=== PATIENT | male | born 1960 | race Caucasian/White ===

== ENCOUNTER 2018-06-09 15:43 | Emergency (ER) | payer OTHER, SELFPAY ==
[2018-06-09 15:47] VITALS: BP 143/77; PULSE 70; RESP 16; TEMP 36.4; O2SAT 100
--- NOTE | 2018-06-09 15:54 | ED.GENADUL_ITS ---
Discharge Plan Disposition Patient Disposition: HOME Condition: Fair Discharge Details Chief Complaint: HeadInjury Clinical Impression: Concussion Primary Care Provider: Yesenia Angel ED Provider: Artur Armas Home Meds and New Rx's Prescriptions: No Action No Known Home Meds RF: 0 Discharge Instructions Instructions: Concussion (ED) Additional Instructions: Encourage hydration. Tylenol and/or ibuprofen as needed for discomfort. Please allow for brain rest. Avoid screens and physical exertion. Please follow-up with primary care in 1 week if symptoms persist. If you develop increased pain, visual change, vomiting or other new/worsening symptoms please seek care urgently once again. Referrals: Yesenia Angel MD [Primary Care Provider] - Discharge Data Discharge Date/Time-TO BE ENTERED AT DEPARTURE: 06/09/18 17:32 Medical Decision Making <LISSY Reed - Last Filed: 06/10/18 15:47> Patient is a 58-year-old male, accompanied by son, with chief complaint of head injury. He reports presently 30 minutes prior to arrival he was working on a ladder, approximately 3 feet up, when he fell backwards catching his foot on the wrong striking the posterior right side of his head against the wall. Reports that this does cause damage to the sheet rock that he hit. No loss of consciousness. Patient feels that he was acting normally but son reports altered mentation. He reports forgetfulness and lapses in memory. Patient endorses nausea initially but reports that this is subsided. No visual changes. Reports the pain is fairly minimal and rates at a 1 out of 10 and localizes it to the area of swelling noted on physical exam. Neuro exam is intact. Patient I discussed risk/benefits of imaging. At this point, I feel that he is low risk for bleed. He is not anticoagulated. However, given mechanism of injury and altered mentation, patient would prefer to move forward with imaging was tried in agreement with. Plan to move forward with CT of the head. Patient is icing the swollen area. He is declining any further analgesics at this time. Reviewed the CT scan. I do not visualize any acute ab normalities. Discussed my wet read with the. Advised that we would wait for radiologist interpretation. At this point, I am primarily concerned for concussion. At the end of my shift, care was transitioned to Shar Armas NP with radioloigst interpretation of CT pending. I did discuss care for concussion with the patient in depth. Encouraged brain rest and hydration. He was given strict return precautions. Advised Tylenol and/or ibuprofen as needed for discomfort. <Artur Armas NP - Last Filed: 06/09/18 17:23> Patient signed out to me by Soniya YUAN. Patient is pending discharge after CT results for suspected concussion with rule out of any intracranial abnormalities. Review of CT shows no acute abnormalities. Spoke with patient in regards to diagnosis and plan of care along with brain rest. Patient stated no further needs questions or concerns and was in stable condition with no new or worrisome changes. Patient discharged in stable condition and ambulatory reviewed previous documentation and agree with assessment and state no obvious change in condition. HPI <LISSY Reed - Last Filed: 06/10/18 15:47> General Mode of arrival: ambulatory . Date/Time Provider Initiated Documentation: 06/09/18 15:47 . Limitations to Documentation: no limitations . Information obtained by: patient . History of Present Illness 58 year old M presents to the emergency department with the chief complaint of head injury, described as mild, with intensity rated at 1. Quality is described as aching, and is localized to the head. Patient reports no radiation. Patient started experiencing this minute(s) (30) and it has been constant. No relieving factors improve symptom(s), No exacerbating factors reported . Patient notes confusion (son reports memory changes), headaches ( reports localized pain where he struck his head at the time of the fall) and nausea/vomiting (endorses nausea which has since resolved); denies chest pain, cough, fever/chills, malaise, rash, seizure, shortness of breath, syncope and weakness. Patient did receive the following treatments prior to arrival, none Related Data Home Medications Medication Instructions Recorded Confirmed Unknown [No Known Home Meds] 06/09/18 06/09/18 Allergies Allergy/AdvReac Type Severity Reaction Status Date / Time No Known Allergies Allergy Unverified 06/09/18 15:55 General Stated Complaint: HeadInjury [facility]: 3 Review of Systems <LISSY Reed - Last Filed: 06/10/18 15:47> Constitutional Reports as per HPI, Denies frequent falls and Reports headache(s) Eyes Denies change in vision and Denies loss of vision ENT Denies dizziness, Reports headache(s) and Denies neck pain Cardiovascular Denies chest pain, Denies syncope, Denies dyspnea and Denies dyspnea on exertion Respiratory Denies cough, Denies dyspnea and Denies dyspnea on exertion Gastrointestinal Reports as per HPI, Denies abdominal pain, Reports nausea and Denies vomiting Genitourinary Denies urinary incontinence Musculoskeletal Reports as per HPI, Denies abnormal gait, Denies back pain, Denies myalgias, Denies arthralgias, Denies muscle weakness, Denies neck pain, Denies numbness and Denies radiating pain into limb Integumentary/Breasts Denies new lesions, Denies erythema and Denies rash Neurologic Reports as per HPI, Denies abnormal gait, Denies behavioral changes, Reports confusion, Denies dizziness, Denies syncope, Denies frequent falls, Reports headache(s), Denies lack of coordination, Denies focal weakness, Denies loss of vision and Denies numbness Psychiatric Denies behavioral changes and Reports confusion Exam <LISSY Reed - Last Filed: 06/10/18 15:47> Const General: cooperative, healthy appearing, comfortable, no acute distress, well developed and well groomed Nutritional Appearance: average body habitus and well nourished Orientation: alert, awake and oriented x3 HENMT Head: abnormal to inspection (Patient is a 3 cm area of palpable swelling on the right occipital aspect of the cranium), no palpable skull fracture, no abrasions, no Cochran's sign, contusion, no hematomas, no lacerations, no occipital foramen tenderness, no palpable skull fracture, no raccoon eyes, scalp tenderness and No periorbital ecchymosis Ears: hearing grossly normal bilaterally, external ears normal and TM's normal bilaterally General nose exam: external nose normal and nares normal Face and sinus: normal facial exam Mouth: oral mucosae normal, lip normal, oropharynx normal and moist mucous membranes Throat: posterior oropharynx normal, tonsils normal and uvula midline Eyes General: appearance normal, both eyes and all related structures Alignment and Position: alignment normal Periorbital: periorbital findings normal Eyelids: eyelids normal Conjunctivae: conjunctivae normal Sclera: sclerae normal Pupils: PERRL EOM: EOM intact bilaterally Neck Neck: normal visual inspection, full ROM, no lymphadenopathy, supple and nontender Resp Effort & Inspection: normal respiratory effort, able to speak in complete sentences and no respiratory distress Auscultation: clear to auscultation bilaterally, no rales, no rhonchi and no wheezes Cardio Rate: regular rate Rhythm: regular rhythm Heart Sounds: S1 normal and S2 normal Back/Spine/Pelvis Cervical Spine: normal cervical lordosis and cervical ROM normal Thoracic/Lumbar Spine: thoracic and lumbar spine normal to inspection Skin General skin exam: no rashes or lesions noted Neuro General: alert, awake and oriented x3 Cranial Nerves: CN's II-XI intact bilaterally Cognition: normal cognition Speech: speech normal Gait: normal gait Motor: muscle tone normal throughout and strength 5/5 throughout Sensory Exam: no sensory deficits noted DTR's: Rt Biceps: 2+, Lt Biceps: 2+, Rt Brachioradialis: 2+, Lt Brachioradialis : 2+, Rt Patellar: 2+, Lt Patellar: 2+, Rt Ankle: 2+ and Lt Ankle: 2+ Coordination: swulqc-ak-vqej test normal, kmpi-ts-lfyw test normal, tandem gait normal and rapid alternating movement UE normal Psych Appearance: grossly normal and well kempt Mental Status: mental status grossly normal Speech and Movement: speech and movement normal Course <LISSY Reed - Last Filed: 06/10/18 15:47> Vital Signs Temperature 36.4 C L 06/09/18 15:47 Pulse 70 06/09/18 15:47 Respiratory Rate 16 06/09/18 15:47 Blood Pressure 143/77 H 06/09/18 15:47 Pulse Oximetry 100 06/09/18 15:47 Temperature 36.4 C L 06/09/18 15:47 Temperature Source Skin 06/09/18 15:47 Pulse 70 06/09/18 15:47 Respiratory Rate 16 06/09/18 15:47 Blood Pressure 143/77 H 06/09/18 15:47 Blood Pressure Position Sitting 06/09/18 15:47 Pulse Oximetry 100 06/09/18 15:47 Oxygen Delivery Method Room Air 06/09/18 15:47 Oxygen Flow Rate 0 06/09/18 15:47 Pain Level 1 06/09/18 15:47 Sign Out <LISSY Reed - Last Filed: 10/31/18 15:47> Sign Out Data: Sign Out Comment: CT results pending after head trauma. Care transitioned to Shar ANN Armas Last updated by Sumi Gale PA at 06/09/18 16:59
--- NOTE | 2018-06-09 16:08 | DI.CT_ITS ---
SYMPTOMS/DIAGNOSIS: TRAUMA S/P FALL CRANIAL CT: A noncontrast enhanced examination was performed. There is no evidence of an intra/extra-axial hemorrhage. The portillo-white matter differentiation is maintained throughout. The ventricles are unremarkable. There is no evidence of an acute fracture. The sinuses are normal. There is no mastoid effusion. The soft tissues are intact. SUMMARY: No acute intracranial abnormality is identified.
--- NOTE | 2018-06-09 17:09 | DI.VRAD_ITS ---
EXAM: CT Head Without Intravenous Contrast EXAM DATE/TIME: 06/09/2018 4:09 PM CLINICAL HISTORY: 58 years old, male; Signs and symptoms; Other: Trauma; Patient HX: Fall heat head posterior TECHNIQUE: Axial computed tomography images of the head/brain without intravenous contrast. All CT scans at this facility use at least one of these dose optimization techniques: automated exposure control; mA and/or kV adjustment per patient size (includes targeted exams where dose is matched to clinical indication); or iterative reconstruction. Coronal and sagittal reformatted images were created and reviewed. COMPARISON: No relevant prior studies available. FINDINGS: Brain: Unremarkable. No hemorrhage. No significant white matter disease. No edema. Ventricles: Unremarkable. No ventriculomegaly. Bones/joints: Unremarkable. No acute fracture. Sinuses: Normal as visualized. No acute sinusitis. Mastoid air cells: Normal as visualized. No mastoid effusion. Soft tissues: Unremarkable. IMPRESSION: No acute intracranial abnormality. Dictated and Authenticated by: Harris Monteiro MD. Ordering:JUSTIN ARROYO MD
[2018-06-09 17:30] VITALS: BP 126/81; PULSE 66; RESP 16; TEMP 36.4; O2SAT 99
--- NOTE | 2018-06-09 23:16 | NUR.NOTE ---
Nursing Note: Patient called after being discharged looking for his dog tags that were his fathers that are now missing. Patient doesn't remember where they were or if he had them at the time he was here. This loan underwriter did patients admission and noted no dog tags around his neck when he was taking off his shirt.
== END 2018-06-09 17:32 | disposition home or self-care (01) ==
PROVIDERS: Emergency Provider Nurse Practitioner Family; PCP Internal Medicine
DX: S06.0X0A Concussion without loss of consciousness, initial encounter (principal); W11.XXXA Fall on and from ladder, initial encounter
CPT/HCPCS: 99284; 70450

== ENCOUNTER 2019-05-13 02:41 | Outpatient (CLI) | payer OTHER, SELFPAY ==
--- NOTE | 2019-05-13 07:35 | DI.US_ITS ---
EXAM: US AAA SCREENING CLINICAL HISTORY: vascular laxity,SCREENING FOR AAA,Z13.6. TECHNIQUE: Ultrasound performed using standard protocol. COMPARISON: No exams were available for comparison FINDINGS: Limited scanning of the abdomen was performed for evaluation possible abdominal aortic aneurysm. Abd ominal aorta is of normal diameter throughout as are the right and left common iliac arteries. IMPRESSION: No evidence of aneurysm.
== END 2019-05-13 03:01 ==
PROVIDERS: PCP Internal Medicine; Visit Provider Internal Medicine
DX: Z13.6 Encounter for screening for cardiovascular disorders (principal)
CPT/HCPCS: 76706

== ENCOUNTER 2023-02-14 08:04 | Day surgery (SDC) | payer OTHER, SELFPAY ==
[2023-02-14 08:25] VITALS: BP 121/85; PULSE 70; RESP 16; TEMP 36.8; O2SAT 98
[2023-02-14] MEDS: Tropicam./Phenyleph. (1/2.5%) 5 ML BTL OD ×3 (08:38→08:45)
--- NOTE | 2023-02-14 09:37 | W.ANESPRE ---
General Info Date of Service Date Performed: 02/14/23 Height: 6 ft 2 in Weight: 91.7 kg Body Mass Index (BMI): 25.9 Surgical Procedure: Operation Date: 02/14/23 09:55 Proposed Procedure Side Surgeon p Cataract Extraction with IOL Implant Right Miquel Hernandez MD Meds Allergies and Home Medications Allergies Allergy/AdvReac Type Severity Reaction Status Date / Time No Known Allergies Allergy Verified 02/14/23 08:28 Home Medication Medication Instructions Recorded Unknown [No Known Home Meds] 05/23/22 Current Visit Medications: Current Medications Generic Name Dose Route Start Last Admin Trade Name Freq PRN Reason Stop Dose Admin Acetaminophen 1,000 mg 02/14/23 06:00 Acetaminophen 500 Mg Tab PO 03/16/23 05:59 Q4H PRN PRN Balanced Salt Solution 500 ml 02/14/23 06:00 Balanced Salt Soln.-Plus 500 Ml Bag OP 03/16/23 05:59 DIRECTED SILVA Miscellaneous Medication 0 ml 02/14/23 06:00 Prednisolone 1%, Moxifloxacin 0.5%, Nepafenac 0.1% 5ml Btl OD 03/16/23 05:59 DIRECTED SILVA Miscellaneous Medication 0 ml 02/14/23 06:00 02/14/23 08:45 Tropicam./Phenyleph. (1/2.5%) 5 Ml Btl OD 03/16/23 05:59 1 drp DIRECTED SILVA Administration Tetracaine HCl 0 ml 02/14/23 06:00 Tetracaine 0.5% 4 Ml Btl OD 03/16/23 05:59 DIRECTED SILVA PFSH Active Problems Active Problems: Problem Status Onset Code Posterior subcapsular age-related cataract, right eye H25.041 Nuclear age-related cataract, right eye H25.11 Encounter for annual physical exam Z00.00 Left carotid stenosis I65.22 Venous insufficiency of lower extremity I87.2 Varicose vein of leg I83.90 Inguinal hernia K40.90 Polyp of colon 12/07/12 K63.5 Tobacco Smoking/Tobacco Use Status: Never Passive smoking exposure: Yes Second hand exposure: Yes Alcohol Alcohol Intake: current Alcohol intake frequency: a few times a month Alcohol type: wine Substance Use Substance use: Never Substance use type: does not use Vital Signs and Lab Results Vital Signs Most Recent Vital Signs in EMR: Most Recent Vital Signs Temp Pulse Resp BP Pulse Ox 36.8 C 70 16 121/85 98 02/14/23 08:25 02/14/23 08:25 02/14/23 08:25 02/14/23 08:25 02/14/23 08:25 Lab Results Blood Type / Crossmatch: No Data to Display Complete Blood Count: No Data to Display Complete Metabolic Panel: No Data to Display Liver Function Panel: No Data to Display Coagulation Panel: No Data to Display Cardiac Panel: No Data to Display Arterial Blood Gas: No Data to Display Venous Blood Gas: No Data to Display Pancreas Panel: No Data to Display Thyroid Panel: No Data to Display Infectious Disease: No Data to Display Blood Cultures: No Data to Display Toxicology Panel: No Data to Display Imaging and Studies Imaging and Studies Study information below may be from another EMR and interpreted by another provider. Please see original notes in EMR for more complete details. Carotid Artery Summary:: 04/2022:Patient Name: Juan Woodward #: [id number]: [id number] Ordering Provider: Milton Jackson M.D. : REG CLI Primary Care Provider: Liana Zepeda NPDate of Exam: 05/07/22Sex: M Admission Date: 05/07/22 : 1960 Age: 61 Exam(s) US CAROTID EXAM: US CAROTID CLINICAL HISTORY: carotid calcification seen on dental xrays,lt carotid stenosis, i65.22. TECHNIQUE: Ultrasound carotids performed using grayscale, color-flow, and spectral Doppler imaging. COMPARISON: No exams were available for comparison FINDINGS: RIGHT CAROTID ARTERY: Plaque: No significant plaque is identified. Velocity elevation: None. LEFT CAROTID ARTERY: Plaque: Noncalcified plaque is identified in the carotid bulb. Velocity elevation: None. VERTEBRAL ARTERIES: Antegrade flow. Measurements: R Bulb: 91.9cm/s PS / 25.8cm/s ED R CCA: 88cm/s PS / 28.4cm/s ED R ECA: 100cm/s PS / 32.5cm/s ED R ICA Prox: 105.3cm/s PS / 21.7cm/s ED R ICA Mid: 89.9cm/s PS / 30.7cm/s ED R ICA Distal: 57.7cm/s PS /24.3cm/s ED R Vert: 37.5cm/s PS / 14cm/s ED R SVR: 1.2 R DVR: 0.8 L Bulb: 84.7cm/s PS / 29cm/s ED L CCA: 79.9cm/s PS / 31.4cm/s ED L ECA: 106.5cm/s PS / 25.9cm/s ED L ICA Prox: 79.9cm/s PS / 29cm/s ED L ICA Mid: 92cm/s PS / 37.4cm/s ED L ICA Distal: 95.5cm/s PS / 39.8cm/s ED L Vert: 50.2cm/s PS / 19.6cm/s ED L SVR: 1.2 L DVR: 1.3 IMPRESSION: No evidence for hemodynamically significant carotid stenosis. Criteria for Carotid Stenosis: Normal: ICA PSV <125 cm/s no plaque or intimal thickening is visible. <50% stenosis: ICA PSV <125 cm/s and plaque or intimal thickening is visible. 50-69% stenosis: ICA PSV is 125-250 cm/s and plaque is visible. >70% stenosis to near occlusion: ICA PSV >250 cm/s with visible plaque and luminal narrowing. Anesthesia Assessment and Plan Anesthesia History Personal History: No History of Anesthesia Complications Family History: No Family History of Anesthesia Complications Exercise Tolerance Exercise Tolerance: Metabolic Equivalents>4 Pertinent Negatives Pertinent Negatives: No Symptoms of GERD, No Major Cardiovascular Symptoms or Complaints and No Major Pulmonary Symptoms or Complaints Cardiac & Pulmonary Exam Cardiac Exam: Normal S1/S2 Heart Sounds Pulmonary Exam: Clear Bilateral Breath Sounds Implantable Cardiac Device Does patient have a Pacemaker or an ICD?: No Airway Exam Known Difficult Airway: No Mallampati Class: 1 Mouth Opening: Normal (> 3cm) Thyromental Distance: Greater than 3 cm Neck Range of Motion: Full ROM Neck Circumference: Normal Teeth Condition: Normal Dentition ASA Classification ASA Score: ASA 2 Emergency Case?: No NPO Status NPO Status: NPO Clears >2 hours, Solids >8 hours Anesthesia Plan Resuscitation Status: Full Code Anesthesia Technique: MAC Anesthesia Airway Planned: Natural Airway Monitors Used: Standard Monitors
[2023-02-14 09:38] VITALS: BMI 25.9
[2023-02-14] MEDS: Balanced Salt Soln.-PLUS 500 ML BAG OP (10:10)
[2023-02-14] MEDS: Tetracaine 0.5% 4 ML BTL OD (10:11)
[2023-02-14] MEDS: Lidocaine 1% Pres-Free 5 ML VIAL (10:11)
[2023-02-14] MEDS: Duovisc Viscoelastic System EACH 1 EACH (10:12)
[2023-02-14] MEDS: Phenylephrine/Lidocaine (15/10) MG/ML 1 ML VIAL (10:13)
[2023-02-14] MEDS: Povidone-Iodine Ophth 30 ML BTL (10:13)
[2023-02-14] MEDS: Trypan Blue 0.06% 0.5 ML SYR (10:13)
[2023-02-14 10:36] VITALS: BP 121/86; PULSE 68; RESP 16; TEMP 36.7; O2SAT 98
--- NOTE | 2023-02-14 10:37 | W.PM.DSUDISC ---
Date of service: 02/14/23 Time of Service: 10:37 Discharge Plan Disposition Patient Disposition: Home Discharge Details Attending Provider: Miquel Hernandez Primary Care Provider: Jeannie Armendariz Home Meds and New Rx's Prescriptions: No Action No Known Home Meds Discharge Instructions Stand Alone Forms: Post-op Topical Cataract, Ashli Dejesus (DSU) Discharge Orders Discharge Orders: Discharge Order (Routine); Ordered 02/14/23 Ordered By: Miquel Hernandez DS: Diagnosis Discharge Diagnosis (1) Posterior subcapsular age-related cataract, right eye: Status: Resolved (2) Nuclear age-related cataract, right eye: Status: Resolved
--- NOTE | 2023-02-14 10:37 | W.PM.OP ---
Date of service: 02/14/23 Time of Service: 10:37 Operative Note Operative Note DATE OF PROCEDURE: 02/14/23 PRE-OP DIAGNOSIS: Dense nuclear/posterior subcapsular cataract, right eye POST-OP DIAGNOSIS: same PROCEDURE: Cataract extraction using phacoemulsification with intraocular lens implant, right eye SURGEON: Miquel Hernandez ANESTHESIA TYPE: Local By Surgeon and MAC Refer to Anesthesia Record ESTIMATED BLOOD LOSS: 0 PATHOLOGY: none sent COMPLICATIONS: None Patient was transported to: same day Patient's condition: stable Implants: Hayden [employer] Hayden Tecnis Eyhance [id number] Indications: Progressive visual loss due to cataract, right eye Procedure Description: CATARACT SURGERY OPERATIVE REPORT PREOPERATIVE DIAGNOSIS: 1. Dense nuclear/posterior subcapsular cataract, right eye POSTOPERATIVE DIAGNOSIS: Same OPERATION: 1. Cataract extraction using phacoemulsification with posterior chamber intraocular lens implant, right eye. IOL: IOL [employer]/Model: Hayden & Hayden Tecnis Eyhance DIB00 IOL Power: + 22.5 diopters IOL Serial Number: [id number] Optic Diameter: 6.0mm Haptic/Overall Diameter: 13.0mm PHACO INFO: Theo [employer] Technologyurion Vision System with OZil and Active Fluidics Cumulative Dispersed Energy (CDE): 26.04 seconds SURGEON: Miquel Hernandez MD, KASEY ANESTHESIA: Monitored Anesthesia Care (MAC), with local sub-tenon's anesthetic infiltration COMPLICATIONS: None SPECIMENS: None INDICATIONS FOR PROCEDURE: The patient is a 62-year-old male with history of diminished visual acuity in his right eye secondary to the development of dense nuclear/posterior subcapsular cataract. Visual acuity measures 2200 in the presence of dense cataract with a poor red reflex. The option of cataract surgery was offered to the patient and he wished to proceed. See office notes for detailed information. PROCEDURE: The correct surgical eye was identified and marked as the right eye and the pupil was dilated in the preoperative area using mydriatics and cycloplegics. The dilated pupil size was 7.0 mm. Oral sedation was administered in the form of an Imprimis MKO Melt (midazolam 3mg/ketamine 25mg/ondansetron 2mg). The patient was brought to the operating room where cardiopulmonary monitoring was instituted and surgical time-out was performed, confirming the correct operative eye and IOL power. Topical anesthesia was administered and ophthalmic povidone-iodine 5% was instilled into the conjunctival fornices. The priscilla-ocular area was prepped with Betadine 10% solution and draped in the usual sterile fashion for intraocular surgery, including an aperture drape. A Tegaderm transparent film dressing was cut in half and used to cover the lashes and lid margins. Care was taken to sequester the lashes and lid margins under the Tegaderm dressing. A lid speculum was placed between the lids of the operative eye and the Theo LuxOR Revalia operating microscope was maneuvered into position. Ivan scissors were then used to make a conjunctival buttonhole approximately 6mm posterior to the limbus in the inferonasal quadrant. Blunt dissection was carried out to expose bare sclera, and a blunt-tipped sub-tenon?s anesthesia cannula was introduced and passed posteriorly along the globe where non-preserved plain lidocaine was injected into posterior sub-Tenon?s space. A sideport knife was used to make a paracentesis port. VisionBlue was injected into the anterior chamber and allowed to sit for 30 seconds. Intraocular phenylephrine/lidocaine was injected into the anterior chamber. The anterior chamber was filled with viscoelastic. A keratome knife was used to construct a 2-plane clear corneal tunnel extending 2.0mm into clear cornea. A flap was raised on the anterior capsule and capsulorhexis forceps were used to complete a continuous curvilinear capsulorhexis of 5.5 mm. Balanced salt solution was then used to perform cortical cleaving hydrodissection and nuclear hydrodelineation until the lens could be freely rotated within the capsular bag. The lens nucleus was then disassembled and removed within the capsular bag and iris plane using phacoemulsification. Residual cortical material was removed using the I/A handpiece. The posterior capsule was carefully polished to remove as much residual lens epithelial cells as safely possible. The capsular bag was then inflated and the anterior chamber deepened with cohesive viscoelastic. The lens implant described above was inserted into the capsular bag using the Hayden and Yvonen Simplicity pre-loaded injector. A Kuglen hook was used to dial the IOL into position. Residual viscoelastic was then removed first from posterior to the IOL, then from the anterior chamber using the I/A handpiece. The lens implant was noted to center nicely within the capsular bag. The incisions were stromally hydrated, and the anterior chamber was reformed using BSS. Then 0.5cc of moxifloxacin 1.0mg/ml were injected into the capsular bag and anterior chamber. The incisions were checked with a Weck spear and found to be secure. Several drops of ophthalmic povidone-iodine 5% were then applied to the eye followed by two drops of Imprimis combination prednisolone/moxifloxacin/nepafenac solution. The drapes were removed and a clear plastic protective eye shield was placed over the eye. The patient was then returned to [facility] in stable condition.
[2023-02-14 10:42] VITALS: BP 121/86; PULSE 68; RESP 16; TEMP 36.7; O2SAT 98
--- NOTE | 2023-02-14 10:49 | W.ANESPOSTOP ---
Postoperative Evaluation Date, Time and Location Date Performed: 02/14/23 Time Performed: 10:50 Patient Location: Day Surgery Unit Vital Signs Most Recent Imported Vital Signs: Most Recent Vital Signs Temp Pulse Resp BP Pulse Ox 36.7 C 68 16 121/86 98 02/14/23 10:42 02/14/23 10:42 02/14/23 10:42 02/14/23 10:42 02/14/23 10:42 Pain Score Most Recent Pain Score: Most Recent Pain Score Pain Level 0 02/14/23 10:42 Assessment Mental Status: Awake (Alert & Oriented to Patient Baseline) Airway and Respiratory Function: Patent airway with normal (patient baseline) respiratory exam Cardiovascular Function: Hemodynamically Stable Hydration Status: Adequately Hydrated Nausea & Vomiting: No Nausea or Vomiting Pain: Pt. Denies Any Pain Peripheral Nerve Block: Patient did not receive a nerve block
[2023-02-14 11:07] VITALS: BP 120/84; PULSE 66; RESP 16; TEMP 36.8; O2SAT 100
== END 2023-02-14 08:05 | disposition home or self-care (01) ==
PROVIDERS: PCP Nurse Practitioner Family; Visit Provider Ophthalmology
PROC: (CPT 66984; principal; 2023-02-14 09:45)
DX: H25.041 Posterior subcapsular polar age-related cataract, right eye (principal); H25.11 Age-related nuclear cataract, right eye
CPT/HCPCS: 66984; V2632

== ENCOUNTER 2023-02-28 07:09 | Day surgery (SDC) | payer OTHER, SELFPAY ==
[2023-02-28 07:20] VITALS: BP 116/81; PULSE 61; RESP 16; TEMP 36.6; O2SAT 97
[2023-02-28] MEDS: Tropicam./Phenyleph. (1/2.5%) 5 ML BTL OS ×3 (07:32→07:47)
--- NOTE | 2023-02-28 07:41 | W.ANESPRE ---
General Info Date of Service Date Performed: 02/28/23 Height: 6 ft 2 in Weight: 91.8 kg Body Mass Index (BMI): 25.9 Surgical Procedure: Operation Date: 02/28/23 08:25 Proposed Procedure Side Surgeon p Cataract Extraction with IOL Implant Left Miquel Hernandez MD Meds Allergies and Home Medications Allergies Allergy/AdvReac Type Severity Reaction Status Date / Time No Known Allergies Allergy Verified 02/28/23 07:28 Home Medication Medication Instructions Recorded Unknown [No Known Home Meds] 05/23/22 Current Visit Medications: Current Medications Generic Name Dose Route Start Last Admin Trade Name Freq PRN Reason Stop Dose Admin Acetaminophen 1,000 mg 02/28/23 06:00 Acetaminophen 500 Mg Tab PO 03/30/23 05:59 Q4H PRN PRN Balanced Salt Solution 500 ml 02/28/23 06:00 Balanced Salt Soln.-Plus 500 Ml Bag OP 03/30/23 05:59 DIRECTED SILVA Miscellaneous Medication 0 ml 02/28/23 06:00 Prednisolone 1%, Moxifloxacin 0.5%, Nepafenac 0.1% 5ml Btl OS 03/30/23 05:59 DIRECTED SILVA Miscellaneous Medication 0 ml 02/28/23 06:00 02/28/23 07:32 Tropicam./Phenyleph. (1/2.5%) 5 Ml Btl OS 03/30/23 05:59 1 drp DIRECTED SILVA Administration Tetracaine HCl 0 ml 02/28/23 06:00 Tetracaine 0.5% 4 Ml Btl OS 03/30/23 05:59 DIRECTED SILVA PFSH Active Problems Active Problems: Problem Status Onset Code Polyp of colon 12/07/12 K63.5 Inguinal hernia K40.90 Varicose vein of leg I83.90 Venous insufficiency of lower extremity I87.2 Left carotid stenosis I65.22 Encounter for annual physical exam Z00.00 Nuclear age-related cataract, right eye H25.11 Posterior subcapsular age-related cataract, right eye H25.041 Nuclear age-related cataract, left eye H25.12 Posterior subcapsular age-related cataract of left eye H25.042 Surgical History Surgical History (Updated 02/28/23 @ 07:24 by Stacy Russell) Hx of cataract removal with insertion of prosthetic lens Tobacco Smoking/Tobacco Use Status: Never Passive smoking exposure: Yes Second hand exposure: Yes Alcohol Alcohol Intake: current Alcohol intake frequency: a few times a month Alcohol type: wine Substance Use Substance use: Never Substance use type: does not use Vital Signs and Lab Results Vital Signs Most Recent Vital Signs in EMR: Most Recent Vital Signs Temp Pulse Resp BP Pulse Ox 36.6 C 61 16 116/81 97 02/28/23 07:20 02/28/23 07:20 02/28/23 07:20 02/28/23 07:20 02/28/23 07:20 Lab Results Blood Type / Crossmatch: No Data to Display Complete Blood Count: No Data to Display Complete Metabolic Panel: No Data to Display Liver Function Panel: No Data to Display Coagulation Panel: No Data to Display Cardiac Panel: No Data to Display Arterial Blood Gas: No Data to Display Venous Blood Gas: No Data to Display Pancreas Panel: No Data to Display Thyroid Panel: No Data to Display Infectious Disease: No Data to Display Blood Cultures: No Data to Display Toxicology Panel: No Data to Display Imaging and Studies Imaging and Studies Study information below may be from another EMR and interpreted by another provider. Please see original notes in EMR for more complete details. Carotid Artery Summary:: 04/2022:Patient Name: Juan Woodward #: [id number]: DI Ordering Provider: Milton Jackson M.D. : REG CLI Primary Care Provider: Liana Zepeda NPDate of Exam: 05/07/22Sex: M Admission Date: 05/07/22 : 1960 Age: 61 Exam(s) US CAROTID EXAM: US CAROTID CLINICAL HISTORY: carotid calcification seen on dental xrays,lt carotid stenosis, i65.22. TECHNIQUE: Ultrasound carotids performed using grayscale, color-flow, and spectral Doppler imaging. COMPARISON: No exams were available for comparison FINDINGS: RIGHT CAROTID ARTERY: Plaque: No significant plaque is identified. Velocity elevation: None. LEFT CAROTID ARTERY: Plaque: Noncalcified plaque is identified in the carotid bulb. Velocity elevation: None. VERTEBRAL ARTERIES: Antegrade flow. Measurements: R Bulb: 91.9cm/s PS / 25.8cm/s ED R CCA: 88cm/s PS / 28.4cm/s ED R ECA: 100cm/s PS / 32.5cm/s ED R ICA Prox: 105.3cm/s PS / 21.7cm/s ED R ICA Mid: 89.9cm/s PS / 30.7cm/s ED R ICA Distal: 57.7cm/s PS /24.3cm/s ED R Vert: 37.5cm/s PS / 14cm/s ED R SVR: 1.2 R DVR: 0.8 L Bulb: 84.7cm/s PS / 29cm/s ED L CCA: 79.9cm/s PS / 31.4cm/s ED L ECA: 106.5cm/s PS / 25.9cm/s ED L ICA Prox: 79.9cm/s PS / 29cm/s ED L ICA Mid: 92cm/s PS / 37.4cm/s ED L ICA Distal: 95.5cm/s PS / 39.8cm/s ED L Vert: 50.2cm/s PS / 19.6cm/s ED L SVR: 1.2 L DVR: 1.3 IMPRESSION: No evidence for hemodynamically significant carotid stenosis. Criteria for Carotid Stenosis: Normal: ICA PSV <125 cm/s no plaque or intimal thickening is visible. <50% stenosis: ICA PSV <125 cm/s and plaque or intimal thickening is visible. 50-69% stenosis: ICA PSV is 125-250 cm/s and plaque is visible. >70% stenosis to near occlusion: ICA PSV >250 cm/s with visible plaque and luminal narrowing. Anesthesia Assessment and Plan Anesthesia History Personal History: No History of Anesthesia Complications Family History: No Family History of Anesthesia Complications Exercise Tolerance Exercise Tolerance: Metabolic Equivalents>4 Pertinent Negatives Pertinent Negatives: No Symptoms of GERD Cardiac & Pulmonary Exam Cardiac Exam: Normal S1/S2 Heart Sounds Pulmonary Exam: Clear Bilateral Breath Sounds Implantable Cardiac Device Does patient have a Pacemaker or an ICD?: No Airway Exam Known Difficult Airway: No Mallampati Class: 1 Mouth Opening: Normal (> 3cm) Thyromental Distance: Greater than 3 cm Neck Range of Motion: Full ROM Neck Circumference: Normal Teeth Condition: Normal Dentition ASA Classification ASA Score: ASA 2 Emergency Case?: No NPO Status NPO Status: NPO Clears >2 hours, Solids >8 hours Anesthesia Plan Resuscitation Status: Full Code Anesthesia Technique: MAC Anesthesia Airway Planned: Natural Airway Monitors Used: Standard Monitors
[2023-02-28 07:56] VITALS: BMI 25.9
[2023-02-28] MEDS: Balanced Salt Soln.-PLUS 500 ML BAG OP (08:21)
[2023-02-28] MEDS: Tetracaine 0.5% 4 ML BTL OS (08:23)
[2023-02-28] MEDS: Duovisc Viscoelastic System EACH 1 EACH (08:23)
[2023-02-28] MEDS: Lidocaine 1% Pres-Free 5 ML VIAL (08:24)
[2023-02-28] MEDS: Povidone-Iodine Ophth 30 ML BTL (08:25)
[2023-02-28] MEDS: Phenylephrine/Lidocaine (15/10) MG/ML 1 ML VIAL (08:25)
[2023-02-28 08:39] VITALS: BP 116/83; PULSE 61; RESP 16; TEMP 36.3; O2SAT 97
--- NOTE | 2023-02-28 08:39 | W.PM.DSUDISC ---
Date of service: 02/28/23 Time of Service: 08:39 Discharge Plan Disposition Patient Disposition: Home Discharge Details Attending Provider: Miquel Hernandez Primary Care Provider: Jeannie Armendariz Home Meds and New Rx's Prescriptions: No Action No Known Home Meds Discharge Instructions Stand Alone Forms: Post-op Topical Cataract, Ashli Dejesus (DSU) Discharge Orders Discharge Orders: Discharge Order (Routine); Ordered 02/28/23 Ordered By: Miquel Hernandez DS: Diagnosis Discharge Diagnosis (1) Nuclear age-related cataract, left eye: Status: Resolved (2) Posterior subcapsular age-related cataract of left eye: Status: Resolved
--- NOTE | 2023-02-28 08:40 | ROE_ITS ---
Date of service: 02/28/23 Time of Service: 08:40 Operative Note Operative Note DATE OF PROCEDURE: 02/28/23 PRE-OP DIAGNOSIS: Nuclear/posterior subcapsular cataract, left eye POST-OP DIAGNOSIS: same PROCEDURE: Cataract extraction using phacoemulsification with intraocular lens implant, left eye SURGEON: Miquel Hernandez ANESTHESIA TYPE: Local By Surgeon and MAC Refer to Anesthesia Record PATHOLOGY: none sent COMPLICATIONS: None Patient was transported to: same day Patient's condition: stable Implants: Hayden and Hayden Tecnis Eyhance [id number] Indications: Progressive decreased vision due to cataract, left eye Procedure Description: CATARACT SURGERY OPERATIVE REPORT PREOPERATIVE DIAGNOSIS: 1. Nuclear/cortical cataract, left eye POSTOPERATIVE DIAGNOSIS: Same OPERATION: 1. Cataract extraction using phacoemulsification with posterior chamber intraocular lens implant, left eye. IOL: IOL Bandoleer Straightener Stamper/Model: Hayden & Hayden Tecnis Eyhance DIB00 IOL Power: + 23.0 diopters IOL Serial Number: [id number] Optic Diameter: 6.0 mm Haptic/Overall Diameter: 13.0 mm PHACO INFO: TheoAddonTV Vision System with OZil and Active Fluidics Cumulative Dispersed Energy (CDE): 4.36 seconds SURGEON: Miquel Hernandez MD, KASEY ANESTHESIA: Monitored A [facility] (MAC), with local sub-tenon's anesthetic infiltration COMPLICATIONS: None SPECIMENS: None INDICATIONS FOR PROCEDUThe patient is a 62-year-old gentleman history of diminished visual acuity in both eyes secondary to the development of bilateral nuclear/posterior subcapsular cataract. He has already undergone cataract surgery in the right eye and is doing well postoperatively. He now presents for cataract surgery in the left eye. See office notes for detailed information. PROCEDURE: The correct surgical eye was identified and marked as the left eye and the pupil was dilated in the preoperative area using mydriatics and cycloplegics. The dilated pupil size was 7.0 mm. Oral sedation was administered in the form of an Imprimis MKO Melt (midazolam 3mg/ketamine 25mg/ondansetron 2mg). The patient was brought to the operating room where cardiopulmonary monitoring was instituted and surgical time-out was performed, confirming the correct operative eye and IOL power. Topical anesthesia was administered and ophthalmic povidone-iodine 5% was instilled into the conjunctival fornices. The priscilla-ocular area was prepped with Betadine 10% solution and draped in the usual sterile fashion for intraocular surgery, including an aperture drape. A Tegaderm transparent film dressing was cut in half and used to cover the lashes and lid margins. Care was taken to sequester the lashes and lid margins under the Tegaderm dressing. A lid speculum was placed between the lids of the operative eye and the Theo LuxOR Revalia operating microscope was maneuvered into position. Ivan scissors were then used to make a conjunctival buttonhole approximately 6mm posterior to the limbus in the inferonasal quadrant. Blunt dissection was carried out to expose bare sclera, and a blunt-tipped sub-tenon?s anesthesia cannula was introduced and passed posteriorly along the globe where non- preserved plain lidocaine was injected into posterior sub-Tenon?s space. A sideport knife was used to make a paracentesis port. Intraocular phenylephrine/lidocaine was injected into the anterior chamber.. The anterior chamber was filled with viscoelastic. A keratome knife was used to construct a 2-plane near-clear corneal tunnel extending 2.0mm into clear cornea. A flap was raised on the anterior capsule and capsulorhexis forceps were used to complete a continuous curvilinear capsulorhexis of 5.0 mm. Balanced salt solution was then used to perform cortical cleaving hydrodissection and nuclear hydrodelineation until the lens could be freely rotated within the capsular bag. The lens nucleus was then disassembled and removed within the capsular bag and iris plane using phacoemulsification. Residual cortical material was removed using the irrigation/aspiration handpiece. The posterior capsule was carefully polished to remove as much residual lens epithelial cells as safely possible. The capsular bag was then inflated and the anterior chamber deepened with viscoelastic. The lens implant described above was inserted into the capsular bag using the Hayden and Hayden Simplicity pre-loaded injector. A Kuglen hook was used to dial the IOL into position. Residual viscoelastic was then removed first from posterior to the IOL, then from the anterior chamber using the I/A handpiece. The lens implant was noted to center nicely within the capsular bag. The incisions were stromally hydrated, and the anterior chamber was reformed using BSS. Then 0.5cc of moxifloxacin 1.0mg/ml were injected into the capsular bag and anterior chamber. The incisions were checked with a Weck spear and found to be secure. Several drops of ophthalmic povidone-iodine 5% were then applied to the eye followed by two drops of Imprimis combination prednisolone/moxifloxacin/nepafenac solution. The drapes were removed and a clear plastic protective eye shield was placed over the eye. The patient was then returned to Same Day Surgery in stable condition.
--- NOTE | 2023-02-28 09:00 | W.ANESPOSTOP ---
Postoperative Evaluation Date, Time and Location Date Performed: 02/28/23 Time Performed: 08:52 Patient Location: Day Surgery Unit Vital Signs Most Recent Imported Vital Signs: Most Recent Vital Signs Temp Pulse Resp BP Pulse Ox 36.3 C L 61 16 116/83 97 02/28/23 08:39 02/28/23 08:39 02/28/23 08:39 02/28/23 08:39 02/28/23 08:39 Pain Score Most Recent Pain Score: Most Recent Pain Score Pain Level 0 02/28/23 08:39 Assessment Mental Status: Awake (Alert & Oriented to Patient Baseline) Airway and Respiratory Function: Patent airway with normal (patient baseline) respiratory exam Cardiovascular Function: Hemodynamically Stable Hydration Status: Adequately Hydrated Nausea & Vomiting: No Nausea or Vomiting Pain: Pt. Denies Any Pain Peripheral Nerve Block: Patient did not receive a nerve block
[2023-02-28 09:01] VITALS: BP 117/77; PULSE 63; RESP 16; TEMP 36.5; O2SAT 100
== END 2023-02-28 09:07 | disposition home or self-care (01) ==
PROVIDERS: PCP Nurse Practitioner Family; Visit Provider Ophthalmology
PROC: (CPT 66984; principal; 2023-02-28 08:15)
DX: H25.12 Age-related nuclear cataract, left eye (principal); H25.042 Posterior subcapsular polar age-related cataract, left eye; I65.22 Occlusion and stenosis of left carotid artery; I87.2 Venous insufficiency (chronic) (peripheral)
CPT/HCPCS: 66984; V2632

== ENCOUNTER 2024-09-06 02:33 | Emergency (ER) | payer OTHER, SELFPAY ==
[2024-09-06] VITALS (47 sets, daily range): BP systolic 123–154; BP diastolic 63–86; PULSE 80–95; RESP 14–18; TEMP 36.2; O2SAT 95–100
[2024-09-06] MEDS: Normal Saline 1,000 ML 1000 ML IV ×2 (02:59→03:00)
[2024-09-06 03:03] LABS: Abs Immature Grans 0.06 10^3/uL (0.0-0.06); Absolute Basophil Count 0.05 10^3/uL (0.0-0.2); Absolute Lymphocyte Count 0.16 10^3/uL (1.2-3.4); Absolute Neutrophil Count 11.99 10^3/uL (1.2-6.7); Basophils % 0.4 %; Eosinophils % 0.2 %; HCT 52.3 % (40.0-50.0); Immature Grans % 0.5 %; Lymphocytes % 1.2 %; MCH 31.7 pg (27.0-33.0); MCHC 32.5 % (32.0-36.0); MCV 97 fL (80-95); MPV 9.1 fL (8.0-11.0); Neutrophils % 91.7 %; Platelet Count 204 10^3/uL (130-400); RBC 5.37 10^6/uL (4.36-5.78); RDW 13.2 % (11.8-14.1); WBC 13.07 10^3/uL (4.4-10.8)
[2024-09-06 03:06] LABS: Absolute Eosinophil Count 0.03 10^3/uL (0.0-0.7); Absolute Monocyte Count 0.78 10^3/uL (0.1-0.8)
[2024-09-06 03:14] LABS: ALT 31 U/L (16-63); AST 15 U/L (15-37); Albumin 3.9 g/dL (3.4-5.0); Alkaline Phosphatase 67 U/L (46-116); BUN 20 mg/dL (7-18); Bilirubin, Total 1.09 mg/dL (0.2-1.0); CREATININE 1.1 mg/dL (0.70-1.30); Calcium 9.1 mg/dL (8.5-10.1); Chloride 103 mmol/L (98-107); Estimated GFR 74.96 (mL/min/1.73m2); Glucose 144 mg/dL (74-106); Lipase 20 U/L (<78); Magnesium 1.8 mg/dL (1.8-2.4); Potassium 4.3 mmol/L (3.5-5.1); Sodium 143 mmol/L (136-145); Total Protein 7.9 g/dL (6.4-8.2)
--- NOTE | 2024-09-06 03:24 | W.ED.GENAD ---
Discharge Plan Disposition Patient Disposition: Home Condition: Good Discharge Details Clinical Impression: Vomiting and diarrhea Primary Care Provider: Jeannie Armendariz ED Provider: Franchesca Morales Home Meds and New Rx's Prescriptions: New ondansetron 4 mg tablet,disintegrating 4 mg PO Q8H PRNQty: 6 0RF Discharge Instructions Instructions: Nausea and Vomiting, Adult ED Additional Instructions: Ondansetron up to every 8 hours as needed for vomiting. Call your primary care doctor in the morning to schedule an appointment to followup on your visit here. Return to the emergency department for new or worsening symptoms including fever, inability to keep down fluids, abdominal pain, blood inyour vomit or stool, feeling like you are going to pass out, or if you have any other concerns. Referrals: Jeannie Armendariz NP [Primary Care Provider] - [facility] General Mode of arrival: EMS. Date/Time Provider Initiated Documentation: 09/06/24 02:36. Limitations to Documentation: no limitations. Information obtained by: patient and EMS. HPI Narrative: 64yo previously health male presenting with acute N/V/D. Symptoms started around 2100, has vomited 10+ times since then and had 10+ episodes of diarrhea. Non-bloody non-bilious emesis. Non-bloody stool, no melena. No abdominal pain. No dysuria or hematuria. After multiple episodes of V & D now feels lightheaded when standing. No one else with similar symptoms. Otherwise in his usual state of health with no fevers, chills, rash, chest pain, shortness of breath, numbness, tingling, focal weakness, syncope, or other concerns. Related Data Home Medications ?Medication ?Instructions ?Recorded ?Confirmed ondansetron 4 mg disintegrating 4 mg PO Q8H PRN #6 tabs 09/06/24 tablet Previous Rx's ?Medication ?Instructions ?Recorded ondansetron 4 mg disintegrating 4 mg PO Q8H PRN #6 tabs 09/06/24 tablet Allergies Allergy/AdvReac Type Severity Reaction Status Date / Time No Known Allergies Allergy Verified 09/06/24 02:30 General Stated Complaint: Nausea/Vomit/Diar [facility]: 3 Review of Systems Narrative: see HPI Exam Narrative Exam Narrative: General: Alert, well appearing, well nourished, in no acute distress. Head: Normocephalic, atraumatic Neck: Trachea midline, ?Neck supple. ENT: ?Dry MM.? No oropharygeal lesions or exudate. Cardiac: ?RRR, no murmurs appreciated Resp: No respiratory distress. CTAB. Abd: ?Soft, non-distended, nontender : ?No suprapubic tenderness. Extremities: ?No deformities.? No peripheral edema. Neurologic: GCS 15. ? Moves all extremities freely against gravity Course Vital Signs Vital signs: Vital Signs Temperature 36.2 C L 09/06/24 02:30 Pulse 87 09/06/24 02:30 Respiratory Rate 16 09/06/24 02:30 Blood Pressure 142/79 H 09/06/24 02:30 Pulse Oximetry 99 09/06/24 02:30 Temperature 36.2 C L 09/06/24 02:34 Temperature Source Temporal Artery Scan 09/06/24 02:34 Pulse 85 09/06/24 03:16 Respiratory Rate 18 09/06/24 02:34 Blood Pressure 135/76 09/06/24 03:16 Blood Pressure Mean 93 09/06/24 03:16 Blood Pressure Position Sitting 09/06/24 02:34 Pulse Oximetry 100 09/06/24 03:16 Oxygen Delivery Method Room Air 09/06/24 02:34 Oxygen Flow Rate 0 09/06/24 02:30 Pain Level 0 09/06/24 02:34 Lab/Test Results Lab/Test Results: Laboratory Tests Range/Units 09/06/24 02:35 WBC (4.4-10.8) 10^3/uL 13.07 H RBC (4.36-5.78) 10^6/uL 5.37 Hgb (13.5-17.5) g/dL 17.0 Hct (40.0-50.0) % 52.3 H MCV (80-95) fL 97 H MCH (27.0-33.0) pg 31.7 MCHC (32.0-36.0) % 32.5 RDW (11.8-14.1) % 13.2 Plt Count (130-400) 10^3/uL 204 MPV (8.0-11.0) fL 9.1 Immature Gran % % 0.5 Neutrophils % % 91.7 Lymphocytes % % 1.2 Monocytes % % 6.0 Eosinophils % % 0.2 Basophils % % 0.4 Nucleated RBC % (0.0-0.3) % 0.0 Absolute Neutrophils (1.2-6.7) 10^3/uL 11.99 H Absolute Lymphocytes (1.2-3.4) 10^3/uL 0.16 L Absolute Monocytes (0.1-0.8) 10^3/uL 0.78 Absolute Eosinophils (0.0-0.7) 10^3/uL 0.03 Absolute Basophils (0.0-0.2) 10^3/uL 0.05 Sodium (136-145) mmol/L 143 Potassium (3.5-5.1) mmol/L 4.3 Chloride (98-107) mmol/L 103 Carbon Dioxide (21.0-32.0) mmol/L 31.0 Anion Gap (3-11) mmol/L 9.0 BUN (7-18) mg/dL 20 H Creatinine (0.70-1.30) mg/dL 1.1 Est GFR (CKD-EPI 2020) (mL/min/1.73m2) 74.96 Glucose (74-106) mg/dL 144 H Calcium (8.5-10.1) mg/dL 9.1 Magnesium (1.8-2.4) mg/dL 1.8 Total Bilirubin (0.2-1.0) mg/dL 1.09 H AST (15-37) U/L 15 ALT (16-63) U/L 31 Alkaline Phosphatase (46-116) U/L 67 Total Protein (6.4-8.2) g/dL 7.9 Albumin (3.4-5.0) g/dL 3.9 Lipase (<78) U/L 20 Medical Decision Making 64yo previously health male presenting with acute N/V/D, 10+ episodes of each since around 2100. Now feels lightheaded when standing. No abdominal pain, otherwise well. Vital signs reassuring on arrival, no abdominal tenderness on exam. MM do appear dry. Suspect gastroenterittis. Did get 4mg IV zofran from EMS prior to arrival which pt reports seems to have helped. Will give 2L IVFB and given severity of symptoms will send labs. With non-tender abdomen and no pain, not concerned for bowe4l obstruction, appendicitis, mesenteric ischemia, or other surgical intraabdominal process; would not get CT imaging at this time. Labs reviewed as below, CBC reassuring with mild leukocytosis as 13 (non-specific), CMP with normal Cr and no actionable abnormalities, Mg normal, lipase normal (unlikely pancreatitis). PO challenged and tolerated well. No further vomiting or diarrhea while in the ED. On reassessment patient reports feeling much improved, requests discharge home which is reasonable. Will prescribe short course of zofran. Discharged home; discharge instructions and return precautions were reviewed with patient who verbalized understanding. All questions were answered and he is in full agreement with the plan. Quality:SDOH Health Related Social Needs: No Data to Display PFSH All Active Problems (Updated 09/06/24 @ 04:59 by Franchesca Morales MD) Vomiting and diarrhea (Acute) Polyp of colon (Acute 12/07/12) serrated adenoma Inguinal hernia (Acute) RIGHT Varicose vein of leg (Acute) Venous insufficiency of lower extremity (Acute) Encounter for annual physical exam (Acute) Surgical History (Updated 02/28/23 @ 08:40 by Miquel Hernandez MD) Hx of cataract removal with insertion of prosthetic lens Family History (Updated 05/11/19 @ 07:29 by Venkat Brewer) Mother , age 83 Dementia Father , age 79 Heart disease Lung cancer Abdominal malignancy Sister No problems noted. Brother No problems noted. Son No problems noted. Son No problems noted. Maternal Grandfather Heart disease Social History (Updated 05/27/23 @ 07:47 by Fallon Brewer) Smoking/Tobacco Use Status: Never Second Hand Exposure: Yes Smoking risk assessment performed?: Yes Alcohol Intake: current Alcohol Intake frequency: a few times a month Alcohol type: wine Drug use: Never Substance use type: does not use Household members: none Housing: house Number of Children: 2 number of grandchildren: 0 Communication Needs: None Do you need help understanding health information?: Never Pets and animals: No Sexually active: Yes Do you think of yourself as: straight/heterosexual Current gender identity: male What is your relationship status?: How often do you talk on the phone with friends or family?: three or more times per week How often do you get together with friends or relatives?: three or more times per week Do you belong to any clubs or organized social groups?: yes Panel score (0-1 are the most socially isolated patients): 2 What type of physical activity do you participate in: bicycling and other Details: Hiking,mountaineering Duration: 60-90 minutes/day Frequency: 5-6 times per week Special ambika needs: No Agree to transfusion: Yes Seatbelt use: always Helmet use: Yes (recreationally) Helmet use: always Drive intox or ride w/intox local company refrigerated truck driver: No Working smoke detector in home: Yes Carbon monox detector in home: Yes Firearms in home: Yes Firearms unloaded and locked: Yes Do you feel safe at home: Yes Do you feel safe in your relationship?: Yes Victim of physical abuse: No Victim of emotional abuse: No Victim of sexual abuse: No Would you like helpful sources: No PAWSS Have you Been Recently Intoxicated or Drunk Within the Last 30 days?: No Have you Ever Experienced Previous Episodes of Alcohol Withdrawal?: No Have you ever Experienced Withdrawal Seizures?: No Have you ever Experienced Delirium Tremens(DT)s?: No Have you ever undergone Alcohol Rehabilitation Treatment (i.e, inpt ot outpatient treatment programs)?: No Have you ever Experienced Blackouts?: No Have you ever Combined Alcohol with other Downers within the last 90 days?: No Have you ever Combined Alcohol with any other Substance of Abuse during the last 90 days?: No Positive Blood Alcohol level on Presentation? [PCS.BAL]: No Evidence of Increased Autonomic Activity (i.e. HR>120, tremor, sweating, agitation, nausea)?: No Result: 0
--- NOTE | 2024-09-06 04:50 | NUR.NOTE ---
Pt PO Challenged, he stated he is feeling better, he can hold down fluids, passed PO Challenge, FPJ
== END 2024-09-06 05:20 | disposition home or self-care (01) ==
LOC: ER 05:15
PROVIDERS: Emergency Provider Student in an Organized Health Care Education/Training Program; PCP Nurse Practitioner Family
DX: R19.7 Diarrhea, unspecified; R11.2 Nausea with vomiting, unspecified; R42 Dizziness and giddiness
CPT/HCPCS: 80053; 83690; 96360; 96361; 99284; 83735; 85025; 99283

== ENCOUNTER 2025-05-31 13:13 | Outpatient (CLI) | payer MEDICARE, SELFPAY ==
--- NOTE | 2025-05-31 13:10 | DI.RAD_ITS ---
Exam(s) XR LUMBAR SPINE COMPLETE EXAM: XR LUMBAR SPINE COMPLETE CLINICAL HISTORY: pain lumbar m54.50. TECHNIQUE: 2D digital imaging was performed of the lumbar spine. Five images were obtained. AP, lateral, right oblique, left oblique and L5-S1 spot views were obtained. COMPARISON: No exams were available for comparison FINDINGS: BONES: No fracture or destructive lesion. Endplate osteophytes are seen at L3-4 through L5-S1. No facet hypertrophy identified. DISKS: There is disc space narrowing at L5-S1. ALIGNMENT: Lumbar spinal alignment is within normal limits. No spondylolysis or spondylolisthesis. SOFT TISSUE: Normal. IMPRESSION: Mild degenerative changes seen in the lumbar spine, particularly at L5-S1. DATA REPOSITORY: RADIATION DOSE DELIVERED:
--- NOTE | 2025-05-31 13:10 | DI.RAD_ITS ---
Exam(s) XR HIP LT COMPLETE AP PELVIS EXAM: XR HIP LT COMPLETE AP PELVIS CLINICAL HISTORY: pain, lt hip M25.552. TECHNIQUE: 2D digital imaging was performed of the left hip. Two views were obtained. AP pelvis and lateral left hip views were obtained. COMPARISON: No exams were available for comparison FINDINGS: BONES: No acute fracture is present. No bony destructive lesion is seen. JOINTS: No dislocation present. There is moderate narrowing of the superior joint space of the left hip. Subchondral cysts are seen in the superior acetabulum. The sacroiliac joints and symphysis pubis are unremarkable. SOFT TISSUE: Normal. IMPRESSION: Mild degenerative changes seen in the left hip. DATA REPOSITORY: RADIATION DOSE DELIVERED:
== END 2025-05-31 13:33 ==
PROVIDERS: PCP Nurse Practitioner Family; Visit Provider Nurse Practitioner Family
DX: M51.362 Other intervertebral disc degeneration, lumbar region with discogenic back pain and lower extremity pain (principal); M16.12 Unilateral primary osteoarthritis, left hip
CPT/HCPCS: 72110; 73502

== ENCOUNTER → 2025-06-21 00:27 | Outpatient (CLI) | payer MEDICARE, SELFPAY ==
--- NOTE | 2025-06-21 06:15 | DI.MRI_ITS ---
Exam(s) MR LUMBAR SPINE WO EXAM: MR LUMBAR SPINE WO CLINICAL HISTORY: low back pain, radiating to left leg, lt hip pain,m54.50,m79.605,m25.552. TECHNIQUE: Multiplanar multisequence MRI of the Lumbar spine was performed. COMPARISON: CR XR LUMBAR SPINE COMPLETE from 05/31/2025 FINDINGS: Conus medullaris is at normal level. There is no evidence of conus mass nor subjacent clumping of intrathecal nerve roots to suggest arachnoiditis. The distal thecal sac appears unremarkable.There is no evidence of Tarlov intrasacral cysts nor other significant findings within the sacral canal Bones:There are no fractures nor ominous osseous lesions in the lumbar vertebral bodies and visualized sacrum. With respect to the individual levels... T12-L1: Unremarkable L1-2: Normal disc height and signal. No disc herniation nor central canal stenosis.No foraminal stenosis L2-3: Normal disc height. No disc herniation nor central canal stenosis.No foraminal stenosis.No facet arthropathy. L3-4: Relatively preserved disc height. However, there is a large disc herniation superimposed on annular bulging. This central disc protrusion extends posteriorly 9 mm and is approximately 15 mm wide. It is severely indents the thecal sac at this level, essentially resulting in severe central spinal canal stenosis. There is some annular bulging in the floor both exiting neural foramina but the main disc herniation does not appear to extend appreciably into the exiting neural foramina and there is only minimal bilateral foraminal stenosis. Facet joints at this level appear unremarkable. L4-5: Normal disc height. Posteriorly there is annular bulging in the superimposed posterolateral right disc protrusion which is better seen on the sagittal than on the axial images. Central canal dimensions are lower normal. There is no significant foraminal stenosis. Mild degenerative changes noted in the facet joints. L5-S1: This level exhibits chronic advanced disc space narrowing with Modic type 2 sub endplate fatty marrow changes. There is, however, no evidence of disc herniation or central canal stenosis at this level. Minimal facet joint degenerative changes. There is mild bilateral foraminal stenosis. Soft tissues: paraspinal soft tissues appear unremarkable. IMPRESSION: 1. The main findings here at the L3-4 level where there is a large central disc herniation as described above causing severe compression of the thecal sac and resulting in severe central spinal canal stenosis. 2. Other findings at L4-5 and L5-S1 levels as described above. DATA REPOSITORY:
--- NOTE | 2025-06-21 06:15 | DI.MRI_ITS ---
Exam(s) MR LOWER JOINT LT WO EXAM: MR LOWER JOINT LT WO CLINICAL HISTORY: left hip pain,m79.605,m25.552 TECHNIQUE: Multiplanar multisequence MRI of the hip was performed. COMPARISON: CR XR HIP LT COMPLETE AP PELVIS from 05/31/2025 FINDINGS: MARROW:There is no evidence of fracture, bone contusion, nor avascular necrosis. No significant size left hip joint effusion. There are no ominous osseous lesions. HIP JOINT SPACE: There are significant osteoarthritic degenerative changes in left hip.There is significant loss of articular cartilage superiorly and there are degenerative subarticular cysts in the superolateral aspect of the left hip acetabulum. There are no degenerative subarticular cysts in the left femoral head but there is a small osteophyte off the superolateral aspect of the left femoral head. There is no hypertrophy of the ligamentum teres. LABRUM: There is evidence of tearing of the anterior-superior labrum BURSAE: There is no evidence of trochanteric bursitis. There is no evidence of iliopsoas bursitis. TENDONS: No evidence of tendinitis nor tendon tears. ISCHIAL TUBEROSITY/HAMSTRING: There is no abnormal intraosseous signal in the ipsilateral ischial tuberosity nor tear of the common hamstrings tendon attachment site at this level. OTHER: There is no abnormal intramuscular signal within the quadratus femoris to suggest the presence of impingement syndrome at this level. IMPRESSION: 1. There moderate osteoarthritic degenerative changes in the left hip with significant articular cartilage loss superiorly and degenerative subarticular cysts in the superolateral aspect of the acetabulum as well as small femoral head osteophytes. 2. There is labral tearing anterosuperiorly. DATA REPOSITORY:
== END ==
PROVIDERS: PCP Nurse Practitioner Family; Visit Provider Nurse Practitioner Family
DX: M48.02 Spinal stenosis, cervical region (principal); M16.12 Unilateral primary osteoarthritis, left hip
CPT/HCPCS: 73721; 72148

== ENCOUNTER → 2025-07-25 14:48 | Outpatient (BNVA) | payer MEDICARE, SELFPAY | PROVIDERS: PCP Nurse Practitioner Family; Referring Provider Nurse Practitioner Family; Visit Provider Student in an Organized Health Care Education/Training Program | DX: M51.26 Other intervertebral disc displacement, lumbar region (principal); M16.12 Unilateral primary osteoarthritis, left hip | CPT/HCPCS: 99214 ==